=== PATIENT | male | born 1945 | race Caucasian/White ===

== ENCOUNTER 2020-07-11 08:47 | Day surgery (SDC) | payer OTHER, MEDICAID, SELFPAY ==
[2020-07-11] VITALS (7 sets, daily range): BP systolic 85–99; BP diastolic 52–79; PULSE 87–99; RESP 12–17; TEMP 36.2–36.3; O2SAT 94–100
[2020-07-11] MEDS: Tropicam./Phenyleph. (1/2.5%) 5 ML BTL OU ×3 (09:32→09:40)
[2020-07-11] MEDS: Lactated Ringers 1,000 ML 30 ML IV (10:02)
[2020-07-11] MEDS: Lidocaine 2% Jelly 6 ML SYR ×2 (10:45→11:25)
[2020-07-11] MEDS: Povidone-Iodine Ophth 30 ML BTL ×2 (10:45→11:25)
[2020-07-11] MEDS: Tetracaine 0.5% 4 ML BTL OU (10:45)
[2020-07-11] MEDS: Lidocaine 1% Pres-Free 5 ML VIAL ×2 (10:52→11:30)
[2020-07-11] MEDS: Duovisc Viscoelastic System EACH 1 EACH ×2 (10:52→11:27)
[2020-07-11] MEDS: Balanced Salt Soln.-PLUS 500 ML BAG ×2 (10:52→11:25)
[2020-07-11] MEDS: Trypan Blue 0.06% 0.5 ML SYR (10:52)
--- NOTE | 2020-07-11 11:47 | W.PM.DSUDISC ---
Discharge Plan Disposition Patient Disposition: HOME Condition: Good Discharge Details Reason For Visit: Cataract surgery bilateral Attending Provider: Jf Olvera Primary Care Provider: Berta Shepherd Home Meds and New Rx's Prescriptions: No Action torsemide 10 mg tablet 10 mg PO BID RF: 0 oxycodone 10 mg tablet 10 mg PO BID PRNRF: 0 pramipexole 0.125 mg tablet 0.25 mg PO QHS RF: 0 spironolactone 100 mg tablet 100 mg PO DAILY RF: 0 hydrochlorothiazide 25 mg tablet 25 mg PO DAILY RF: 0 gabapentin 400 MG capsule 3 cap PO TID RF: 0 folic acid 1 MG tablet 1 mg PO DAILY RF: 0 methotrexate sodium (PF) 25 MG/1 ML solution 0.8 ml Sub-Q Weekly RF: 0 duloxetine 60 MG capsule,delayed release(DR/EC) 60 mg PO DAILY RF: 0 budesonide-formoterol [Symbicort] 10.2 GM HFA aerosol inhaler 1 puff Inhalation BID RF: 0 fentanyl 1 EACH patch 72 hour 1 ea Transdermal Q72H RF: 0 Ketoconazole Cream 2 % Topical PRN RF: 0 albuterol sulfate 90 mcg/actuation 2 puff Inhalation Q4H PRN RF: 0 vitamin b12 100 mcg PO DAILY RF: 0 prednisone 5 MG tablet 7 mg PO DAILY RF: 0 pantoprazole [Protonix] 40 MG tablet,delayed release (DR/EC) 40 mg PO DAILY RF: 0 sulindac 200 MG tablet 200 mg PO DAILY RF: 0 nortriptyline 50 MG capsule 50 mg PO DAILY RF: 0 Spiriva with HandiHaler 18 MCG capsule, w/inhalation device 18 mcg Inhalation DAILY RF: 0 silodosin [Rapaflo] 4 MG capsule 4 mg PO DAILY RF: 0 Narcan 4 MG spray,non-aerosol 4 mg NS as directed 1 Days Qty: 2 RF: 0 Discharge Instructions Stand Alone Forms: Post-op Topical Russ Locke (DSU) Discharge Orders Discharge Orders: Discharge Order (Routine); Ordered 07/11/20 Ordered By: Jf Olvera DS: Diagnosis Discharge Diagnosis (1) Posterior subcapsular age-related cataract, right eye: Status: Resolved (2) Nuclear sclerotic cataract of right eye: Status: Resolved (3) Cortical cataract of left eye: Status: Resolved (4) Nuclear sclerotic cataract of left eye: Status: Resolved
--- NOTE | 2020-07-11 11:50 | ROE_ITS ---
Date of service: 07/11/20 Time of Service: 11:51 Operative Note Operative Note DATE OF PROCEDURE: 07/11/20 PRE-OP DIAGNOSIS: Nuclear/posterior subcapsular cataract, right eye Poor red reflex, right eye secondary to cataract POST-OP DIAGNOSIS: same PROCEDURE: Cataract extraction using phacoemulsification with intraocular lens implantation, right eye, using capsular staining with Vision Blue This is the first eye of an immediate sequential bilateral cataract surgery. SURGEON: Jf Olvera ANESTHESIA: GETA and local PATHOLOGY: none sent COMPLICATIONS: None Patient was transported to: same day Patient's condition: stable Implants: Baljinder and Baljinder / [employer] Tecnis [id number] Indications: Progressive visual loss due to cataract, right eye Procedure Description: CATARACT SURGERY OPERATIVE REPORT PREOPERATIVE DIAGNOSIS: 1. Nuclear/subcapsular cataract, right eye 2. Poor red reflex secondary to #1 POSTOPERATIVE DIAGNOSIS: Same OPERATION: 1. Cataract extraction using phacoemulsification with posterior chamber intraocular lens implant, right eye. 2. Capsular staining with Vision Blue IOL: IOL Transition Social Worker/Model: [employer]jinder & Baljinder / YUNI Tecnis ZCB00 IOL Power: + 23.0 diopters IOL Serial Number: [id number] Optic Diameter: 6.0mm Haptic/Overall Diameter: 13.0mm PHACO INFO: Luis [employer] Vision System with OZil and Active Fluidics Cumulative Dispersed Energy (CDE): 7.17 seconds SURGEON: Jf Olvera MD, PATTI ANESTHESIA: General/endotracheal, with local sub-tenon's anesthetic infiltration COMPLICATIONS: None SPECIMENS: None INDICATIONS FOR PROCEDURE: The patient is a 75-year-old gentleman with history of symptomatic bilateral nuclear and posterior subcapsular cataract in both eyes. He is significantly symptomatic that he desires cataract surgery and attempt to improve and maximize his vision. He cannot lie flat without pain. Surgery will have to be performed under general/endotracheal anesthesia. The option of bilateral sequential same- day cataract surgery was offered to the patient and he wished to proceed. PROCEDURE: The correct surgical eye was identified and marked as the right eye and the pupil was dilated in the preoperative area using mydriatics and cycloplegics. The dilated pupil size was 6.0 mm. The patient was brought to the operating room where cardiopulmonary monitoring was instituted and surgical time-out was performed, confirming the correct operative eye and IOL power. General/endotracheal anesthesia was then administered. Topical anesthesia was administered and ophthalmic povidone-iodine 5% was instilled into the conjunctival fornices. Lidocaine gel was applied to the cornea and the jeferson-ocular area was prepped with Betadine 10% solution and draped in the usual sterile fashion for intraocular surgery, including an aperture drape. A Tegaderm transparent film dressing was cut in half and used to cover the lashes and lid margins. Care was taken to sequester the lashes and lid margins under the Tegaderm dressing. A lid speculum was placed between the lids of the operative eye and the Carolyn-Jessika operating microscope was maneuvered into position. Shivani scissors were then used to make a conjunctival buttonhole approximately 6mm posterior to the limbus in the inferonasal quadrant. Blunt dissection was carried out to expose bare sclera, and a blunt-tipped sub-tenon?s anesthesia cannula was introduced and passed posteriorly along the globe where non- preserved plain lidocaine was injected into posterior sub-Tenon?s space. A sideport knife was used to make a paracentesis port inferotemporally. Intraocular phenylephrine/lidocaine was injected into the anterior chamber. Air was injected into the anterior chamber, followed by Vision Blue, which was painted over the anterior capsule and then irrigated out with BSS. The anterior chamber was filled with viscoelastic. A 2.4mm keratome knife was used to create a half-thickness groove at the limbus and then to construct a three-plane near- clear corneal tunnel extending 2.0mm into clear cornea superiortemporally. A flap was raised on the anterior capsule and capsulorhexis forceps were used to complete a continuous curvilinear capsulorhexis of 5.5 mm. Balanced salt solution was then used to perform cortical cleaving hydrodissection and nuclear hydrodelineation until the lens could be freely rotated within the capsular bag. The lens nucleus was then disassembled and removed within the capsular bag and iris plane using phacoemulsification. Residual cortical material was removed using the I/A handpiece. The posterior capsule was carefully polished to remove as much residual lens epithelial cells as safely possible. The capsular bag was then inflated and the anterior chamber deepened with viscoelastic. The lens implant described above was inserted into the capsular bag using the YUNI Unga Injector. A Kuglen hook was used to dial the IOL into position. Residual viscoelastic was then removed first from posterior to the IOL, then from the anterior chamber using the I/A handpiece. The lens implant was noted to center nicely within the capsular bag. The incisions were stromally hydrated, and the anterior chamber was reformed using BSS. Then 0.1cc of moxifloxacin 5.0mg/ml were injected into the capsular bag and anterior chamber. The incisions were checked with a Weck spear and found to be secure. Several drops of ophthalmic povidone-iodine 5% were then applied to the eye followed by two drops of Imprimis combination prednisolone/moxifloxacin/nepafenac solution. The drapes were removed and attention was then directed to the left eye. An entirely different set of gowns, gloves, drapes, medications, fluids, and instruments were used for the left eye.
--- NOTE | 2020-07-11 11:58 | ROE_ITS ---
Date of service: 07/11/20 Time of Service: 11:58 Operative Note Operative Note DATE OF PROCEDURE: 07/11/20 PRE-OP DIAGNOSIS: Nuclear/posterior subcapsular cataract, left eye POST-OP DIAGNOSIS: same PROCEDURE: Cataract extraction using phacoemulsification with intraocular lens implant, left eye Second eye of intermediate sequential bilateral cataract surgery SURGEON: Jf Olvera ANESTHESIA: GETA and local PATHOLOGY: none sent COMPLICATIONS: None Patient was transported to: same day Patient's condition: stable Implants: Baljinder and Baljinder / [employer] Tecnis [id number] Indications: Progressive decreased vision due to cataract, left eye Procedure Description: CATARACT SURGERY OPERATIVE REPORT PREOPERATIVE DIAGNOSIS: Nuclear/posterior subcapsular cataract, left eye POSTOPERATIVE DIAGNOSIS: Same OPERATION: Cataract extraction using phacoemulsification with posterior chamber intraocular lens implant, left eye. IOL: IOL Station Engineer Main Line/Model: [employer] Vision / YUNI Tecnis ZCB00 IOL Power: + 22.5 diopters IOL Serial Number: [id number] Optic Diameter: 6.0mm Haptic/Overall Diameter: 13.0mm PHACO INFO: Luis [employer] Vision System with OZil and Active Fluidics Cumulative Dispersed Energy (CDE): 6.83 seconds SURGEON: Jf Olvera MD, PATTI ANESTHESIA: Monitored Anesthesia Care (MAC), with local sub-tenon's anesthetic infiltration COMPLICATIONS: None SPECIMENS: None INDICATIONS FOR PROCEDURE: The patient is a 75-year-old gentleman with history of symptomatic bilateral posterior subcapsular and nuclear cataract. He is significantly symptomatic that he desires cataract surgery attempt to improve and maximize his vision. He cannot lie flat due to pain, and cannot tolerate cataract surgery under local anesthesia with sedation. General anesthesia is required. The option of immediate sequential bilateral same-day cataract surgery was offered to the patient and he wished to proceed. He has already undergone cataract surgery in the right eye and attention is now directed to the left eye. PROCEDURE: The correct surgical eye was identified and marked as the left eye and the pupil was dilated in the preoperative area using mydriatics and cycloplegics. The dilated pupil size was 6.0 mm. The patient has just undergone cataract surgery in the right eye under general/endotracheal anesthesia. Attention is now directed to the left eye, where an entirely different set of gowns, gloves, drapes, medications, fluids, and instruments are used. Topical anesthesia was administered and ophthalmic povidone-iodine 5% was instilled into the conjunctival fornices. Lidocaine gel was applied to the cornea and the jeferson-ocular area was prepped with Betadine 10% solution and draped in the usual sterile fashion for intraocular surgery, including an aperture drape. A Tegaderm transparent film dressing was cut in half and used to cover the lashes and lid margins. Care was taken to sequester the lashes and lid margins under the Tegaderm dressing. A lid speculum was placed between the lids of the operative eye and the Carolyn-Jessika operating microscope was maneuvered into position. Shivani scissors were then used to make a conjunctival buttonhole approximately 6mm posterior to the limbus in the inferonasal quadrant. Blunt dissection was carried out to expose bare sclera, and a blunt-tipped sub-tenon?s anesthesia cannula was introduced and passed posteriorly along the globe where non- preserved plain lidocaine was injected into posterior sub-Tenon?s space. A sideport knife was used to make a paracentesis port superior/superiortemporally. Intraocular phenylephrine/lidocaine was injected into the anterior chamber. The anterior chamber was then filled with viscoelastic. A 2.4mm keratome knife was used to create a half-thickness groove at the limbus and then to construct a three-plane near-clear corneal tunnel extending 2.0mm into clear cornea in the temporal position. . A flap was raised on the anterior capsule and capsulorhexis forceps were used to complete a continuous curvilinear capsulorhexis of 5.5 mm. Balanced salt solution was then used to perform cortical cleaving hydrodissection and nuclear hydrodelineation until the lens could be freely rotated within the capsular bag. The lens nucleus was then disassembled and removed within the capsular bag and iris plane using phacoemulsification. Residual cortical material was removed using the 45-degree angled silicone I/A tip with 0.3mm port. The posterior capsule was carefully polished to remove as much residual lens epithelial cells as safely possible. The capsular bag was then inflated and the anterior chamber deepened with viscoelastic. The lens implant described above was inserted into the capsular bag using the YUNI [place] Injector. A Kuglen hook was used to dial the IOL into position. Residual viscoelastic was then removed first from posterior to the IOL, then from the anterior chamber using the I/A handpiece. The lens implant was noted to center nicely within the capsular bag. The incisions were stromally hydrated, and the anterior chamber was reformed using BSS. Then 0.1cc of moxifloxacin 5.0mg/ml were injected into the capsular bag and anterior chamber. The incisions were checked with a Weck spear and found to be secure. Several drops of ophthalmic povidone-iodine 5% were then applied to the eye followed by two drops of Imprimis combination prednisolone/moxifloxacin/nepafenac solution. The drapes were removed and a clear plastic protective eye shield was placed over the eye. The patient was then returned to [facility] Surgery in stable condition.
== END 2020-07-11 13:09 | disposition home or self-care (01) ==
PROVIDERS: PCP Family Medicine; Visit Provider Ophthalmology
PROC: (CPT 66982; principal; 2020-07-11 10:15)
DX: H25.041 Posterior subcapsular polar age-related cataract, right eye (principal); H25.11 Age-related nuclear cataract, right eye; H25.12 Age-related nuclear cataract, left eye; H25.042 Posterior subcapsular polar age-related cataract, left eye; H35.89 Other specified retinal disorders; J45.909 Unspecified asthma, uncomplicated; F17.210 Nicotine dependence, cigarettes, uncomplicated; J44.9 Chronic obstructive pulmonary disease, unspecified; K21.9 Gastro-esophageal reflux disease without esophagitis
CPT/HCPCS: 66982; 66984; V2632; J1720; J2001; J2370; J2704